=== PATIENT | male | born 1930 | race Caucasian/White ===

== ENCOUNTER → 2017-02-02 | Outpatient (CLI) | payer MEDICARE, BC ==
--- NOTE | 2017-02-03 08:16 | XR ---
EXAMINATION TYPE: XR foot complete RT DATE OF EXAM: 02/02/2017 2:26 PM COMPARISON: NONE HISTORY: 86-year-old male right foot pain and injury. TECHNIQUE: 3 views FINDINGS: Incidental bipartite tibial sesamoid. Incidental Bhakta's toe. No acute fracture, subluxation, or dis location. Tiny plantar calcaneal spur. IMPRESSION: Tiny plantar calcaneal spur and incidental Bhakta's toe. No acute osseous abnormality seen.
== END | disposition home or self-care (01) ==
LOC: RADXRYALE 14:14
PROVIDERS: ATTEND Physician Assistant Medical
DX: M77.31 Calcaneal spur, right foot (principal)

== ENCOUNTER → 2018-03-06 | Outpatient (CLI) | payer MEDICARE, BC ==
--- NOTE | 2018-03-06 10:52 | CT ---
EXAMINATION TYPE: CT brain wo con DATE OF EXAM: 03/06/2018 HISTORY: Unspecified superficial injury of other CT DLP: 1029.90 mGycm. Automated Exposure Control for Dose Reduction was Utilized. TECHNIQUE: CT scan of the head is performed without contrast. COMPARISON: None. FINDINGS: There is no acute intracranial hemorrhage or midline shift identified. There is diffuse v entricular and sulcal prominence consistent with diffuse age-related cerebral atrophy. There is low- attenuation in the periventricular white matter consistent with chronic small vessel ischemic change. The globes are intact and the visualized sinuses are clear. Soft tissue density left extra audito ry canals felt to reflect cerumen. The calvarium is intact. IMPRESSION: No acute intracranial hemorrhage or midline shift. There is mild to moderate diffuse ag e-related cerebral atrophy and more moderate chronic small vessel ischemic change noted. HOld and call results called to ordering physician funeral director's assistant office via telephone at time of dictatio n.
== END | disposition home or self-care (01) ==
LOC: RADCTMAIN 10:09
PROVIDERS: ATTEND Physician Assistant Medical
DX: G31.1 Senile degeneration of brain, not elsewhere classified (principal); I67.82 Cerebral ischemia
CPT/HCPCS: 70450